=== PATIENT | female | born 1985 | race Caucasian/White ===

== ENCOUNTER → 2017-12-10 10:37 | Outpatient (CLI) | payer MEDICAID, SELFPAY ==
--- NOTE | 2017-12-10 10:42 | US_ITS ---
US transvaginal HISTORY: Right-sided pelvic pain ITS.REASON: PELVIC PAIN ORDERING PHYSICIAN: Nikko Jiang MD PATIENT AGE: 32 years COMPARISON: None FINDINGS: There has been prior hysterectomy. Free fluid is present in the pelvis. The left ovary is 3.5 x 2 cm and contains small follicles. Blood flow is present. The right ovary is 4.7 x 2.9 cm containing small follicles and a 2.5 x 2 cm cyst. Blood flow is present. Moderate amount fluid is present in cul-de-sac. IMPRESSION: Prior hysterectomy. Prominent right ovary with 2.5 cm cyst. Moderate amount fluid in the pelvis
== END ==
PROVIDERS: Family Provider Emergency Medicine; PCP Emergency Medicine; Visit Provider Obstetrics & Gynecology
DX: R10.2 Pelvic and perineal pain (principal)
CPT/HCPCS: 76830

== ENCOUNTER → 2017-12-17 12:03 | Outpatient (CLI) | payer MEDICAID, SELFPAY | PROVIDERS: PCP Emergency Medicine; Visit Provider Emergency Medicine | DX: R10.2 Pelvic and perineal pain (principal) ==

== ENCOUNTER → 2017-12-19 12:48 | Outpatient (CLI) | payer MEDICAID, SELFPAY ==
[2017-12-19 12:52] LABS: Microscopic, Urine URINE MICROSCOPIC (MICROSCOPIC)
[2017-12-19 13:19] LABS: Basophils # 0.1 K/mm3 (0-0.2); Basophils % 0.9 % (0.1-2.0); Eosinophils # 0.1 K/mm3 (0.0-0.4); Eosinophils % 1.5 % (0.1-12.0); Hematocrit 41.5 % (37.0-47.0); Hemoglobin 13.5 g/dL (12.2-16.2); Lymphocytes # 2.6 K/mm3 (0.7-4.5); Mean Corpuscular HGB Conc 32.4 g/dL (31.8-35.4); Mean Corpuscular Hemoglobin 29.1 pg (27.0-31.2); Mean Corpuscular Volume 89.9 fl (81-99); Mean Platelet Volume 8.2 fl (7.4-10.4); Monocytes # 0.7 K/mm3 (0.1-1.0); Monocytes % 8.8 % (1.7-9.3); Neutrophils # 4.1 K/mm3 (1.8-7.8); Neutrophils % 53.9 % (37.0-80.0); Platelet Count 238 K/mm3 (142-424); Red Blood Count 4.62 M/mm3 (4.20-5.40); Red Cell Distribution Width 12.7 % (11.5-17.5); White Blood Count 7.6 K/mm3 (4.8-10.8)
[2017-12-19 13:21] LABS: Appearance,Urine CLEAR (Clear); Bilirubin,Urine Negative (Negative); Blood, Urine Negative (Negative); Color,Urine YELLOW (Yellow); Glucose,Urine (UA) Negative (Negative); Ketones,Urine Negative (Negative); Leukocyte Esterase,Urine Negative (Negative); Nitrate,Urine Negative (Negative); Protein,Urine Negative (Negative); Specific Gravity, Urine 1.025 (1.005-1.030)
[2017-12-19 13:38] LABS: Bacteria,Urine 2+ /lpf; Mucus,Urine 2+ /lpf; WBC,Urine Occasional #/hpf (0-3)
[2017-12-19 15:54] LABS: Alanine Aminotransferase 18 U/L (12-78); Albumin Level 3.8 gm/dL (3.4-5.0); Albumin/Globulin Ratio 1.2 (1.1-1.8); Alkaline Phosphatase 68 U/L (46-116); Anion Gap 10.2 mEq/L (5-15); Aspartate Amino Transferase 11 U/L (15-37); Bilirubin,Total 0.2 mg/dL (0.2-1.0); Blood Urea Nitrogen 12 mg/dL (7-18); Calcium 8.7 mg/dL (8.5-10.1); Carbon Dioxide 31 mmol/L (21.0-32.0); Chloride 107 mmol/L (98-107); Creatinine,Serum 0.63 mg/dL (0.55-1.02); Estimated Glomerular Filt Rate 108 ml/min (>60); GFR (African American) 131 ML/MIN (>60); Globulin 3.1 gm/dl (1.3-3.2); Glucose 80 mg/dL (74-106); Potassium 4.2 mmoL/L (3.5-5.1); Sodium 144 mmol/L (136-145); Total Protein,Serum 6.9 gm/dL (6.4-8.2)
[2017-12-20 19:10] LABS: Cancer Antigen (CA) 125 8.9 U/mL (0.0-38.1)
== END ==
PROVIDERS: PCP Emergency Medicine; Visit Provider Obstetrics & Gynecology
DX: R10.2 Pelvic and perineal pain (principal); Z01.812 Encounter for preprocedural laboratory examination
CPT/HCPCS: 36415; 80053; 81001; 85025; 86316; 87086

== ENCOUNTER 2017-12-23 06:11 | Day surgery (SDC) | payer MEDICAID, SELFPAY ==
[2017-12-19 13:14] VITALS: BMI 20.5
[2017-12-23] VITALS (10 sets, daily range): BP systolic 100–131; BP diastolic 68–83; PULSE 70–88; RESP 14–18; TEMP 36.4–43; O2SAT 98–100
--- NOTE | 2017-12-23 06:49 | HMH.ANESCL ---
[facility] Anesthesia Checklist - Patient Identification Patient Identification: Arm Band, Verbal (Name & ) - Structural Data Admitted From: Home Planned Operative Procedure/s: dx lap Consent for Planned Operative Procedure(s) Verified: Yes Verified Documents: Surgical Consent - NPO Status Verified Time NPO: 00:00 - Chart Verification Results Verified: CBC, BMP - Additional verifications Patient : No Anesthesia Reactions: No Hx Blood Transfusions: No Blood Transfusion Reaction: No Cephalosporin Allergy: No Previous Colonoscopy: No - Cardiovascular Assessment Heart Sounds: S1 & S2 Pulse Strength: Baseline Pulse Rhythm: Regular Peripheral Edema: No - Airway Assessment C-Spine Mobility Assessed: Yes TMJ Mobility Assessed: Yes Dentition: Edentulous - Neurological Assessment Level of Consciousness: Awake, Alert, Appropriate Hx Seizures: No Numbness or tingling in extremities: No - Anesthesia Plan Anesthesia Risk discussed: Yes ASA Class: II Anesthesia Type: General [facility] Anesthesia HX I have reviewed the patient's past medical history: Yes Medical History: Reports:: Asthma Denies:: Cancer, Diabetes Mellitus Type 1, Diabetes Mellitus Type 2, MRSA Other Surgeries: Yes: Hysterectomy-Total, Tubal Ligation, Other Amputation: No Fractures: Yes (right jaw) *Family Hx:: Stroke, Cancer
--- NOTE | 2017-12-23 06:53 | P.PN_ITS ---
[facility] Anesthesia Checklist - Patient Identification Patient Identification: Arm Band, Verbal (Name & ) - Structural Data Admitted From: Home Planned Operative Procedure/s: dx lap Consent for Planned Operative Procedure(s) Verified: Yes Verified Documents: Surgical Consent - NPO Status Verified Time NPO: 00:00 - Chart Verification Results Verified: CBC, BMP - Additional verifications Patient : No Anesthesia Reactions: No Hx Blood Transfusions: No Blood Transfusion Reaction: No Cephalosporin Allergy: No Previous Colonoscopy: No - Cardiovascular Assessment Heart Sounds: S1 & S2 Pulse Strength: Baseline Pulse Rhythm: Regular Peripheral Edema: No - Airway Assessment C-Spine Mobility Assessed: Yes TMJ Mobility Assessed: Yes Dentition: Edentulous - Neurological Assessment Level of Consciousness: Awake, Alert, Appropriate Hx Seizures: No Numbness or tingling in extremities: No - Anesthesia Plan Anesthesia Risk discussed: Yes ASA Class: II Anesthesia Type: General [facility] Anesthesia HX I have reviewed the patient's past medical history: Yes Medical History: Reports:: Asthma Denies:: Cancer, Diabetes Mellitus Type 1, Diabetes Mellitus Type 2, MRSA Other Surgeries: Yes: Hysterectomy-Total, Tubal Ligation, Other Amputation: No Fractures: Yes (right jaw) *Family Hx:: Stroke, Cancer
--- NOTE | 2017-12-23 08:30 | P.PN_ITS ---
[facility] Anesthesia Record Part II Discharge Time: 09:00 Destination: [facility] PACU nurse assessment reviewed?: Yes Patient Condition:: Good Anesthesia Complications:: None
--- NOTE | 2017-12-23 08:30 | P.PN_ITS ---
[facility] Anesthesia Record Part I Intake, IV Amount: 1,500 Estimated blood loss (mL): 0 Urine output (mL): 0 Blood Pressure: 131/80 SaO2: 98 Pulse Rate: 81 Respiratory Rate: 14 Temperature: 99.1 F Patient is:: Drowsy, Stable Stable to PACU at:: 08:30
--- NOTE | 2017-12-23 08:30 | HMH.ANESII ---
[facility] Anesthesia Record Part II Discharge Time: 09:00 Destination: [facility] PACU nurse assessment reviewed?: Yes Patient Condition:: Good Anesthesia Complications:: None
--- NOTE | 2017-12-23 08:33 | HMH.OPNOTE ---
Date of procedure: 12/23/17 Pre-op Diagnosis:: 1. Pelvic pain. 2. Left ovarian cyst. Post-op diagnosis:: other (1. Pelvic pain.2. Leaking left ovarian cyst.3. Extensive pelvic adhesions.) Procedure performed:: Pelviscopic bilateral salpingo-oophorectomy and extensive lysis of adhesions. Surgeon:: Nikko Jiang MD TRACK REPAIR PERSON:: Sonu Cochran Anesthesia: GETA Estimated blood loss (mL): 10 Operative findings:: 1. Extensive pelvic adhesions. 2. Leaking left ovarian cyst. Operative note:: After the patient was prepped and draped in usual fashion and general anesthesia was administered, examination under anesthesia revealed an absent uterus, and no palpable adnexal masses. A moist sponge stick was placed in the vagina for elevation of the vaginal cuff during the laparoscopy. After appropriate regloving, the skin on either side of the umbilicus was tented up with towel clips. A small incision was made in the base the umbilicus with a knife, and a Veress needle was inserted into the abdominal cavity. After a demonstration of negative pressure, and adequate phisoperitoneum was created with carbon dioxide gas. Veress needle was then replaced with a trocar and cannula, using the [employer] system, and the trocar placed with the laparoscope. The uterus was surgically absent. There were extensive pelvic adhesions, from omentum to the vaginal cuff, and burying both adnexa. The right adnexa, in particular, was multicystic. There was a moderate amount of serosanguineous fluid in the cul-de-sac, and this was suctioned. The upper abdomen was explored him to be normal. The appendix not able to be visualized. Returning to the pelvis, after transillumination and under direct visualization, accessory ports were placed in the right and left lower quadrants. Using a combination of endo-Babcocks and EndoShears, the adhesions were taken down hemostatically. The infundibulopelvic ligaments on either side were crossclamped and stapled, thus removing both adnexa. An Endo Catch basket was placed through the left lower quadrant port, and first the right adnexa, and then the left were brought out through that port. There was no undue bleeding. The pelvis was inspected and found to be clean. The fascial peritoneum was reduced, and the instruments were removed under direct visualization. The skin incisions were infused with a dilute solution of Marcaine, as a local anesthetic, and closed with subcuticular sutures of 3-0 Vicryl. The wounds were appropriately dressed. The sponge stick was removed from the vagina. The estimated blood loss was less than 10 cc. The patient tolerated the procedure well, was taken to PACU in excellent condition. She will be discharged today, if her vital signs are stable. She will receive Delestrogen 30 mg IM in PACU. Pathology: other Condition: stable Disposition: same day Specimens:: Both adnexa Complications:: None
--- NOTE | 2017-12-23 08:40 | P.OP_ITS ---
Date of procedure: 12/23/17 Pre-op Diagnosis:: 1. Pelvic pain. 2. Left ovarian cyst. Post-op diagnosis:: other (1. Pelvic pain.2. Leaking left ovarian cyst.3. Extensive pelvic adhesions.) Procedure performed:: Pelviscopic bilateral salpingo-oophorectomy and extensive lysis of adhesions. Surgeon:: Nikko Jiang MD MARKET RELATIONSHIP MANAGER:: Sonu Cochran Anesthesia: GETA Estimated blood loss (mL): 10 Operative findings:: 1. Extensive pelvic adhesions. 2. Leaking left ovarian cyst. Operative note:: After the patient was prepped and draped in usual fashion and general anesthesia was administered, examination under anesthesia revealed an absent uterus, and no palpable adnexal masses. A moist sponge stick was placed in the vagina for elevation of the vaginal cuff during the laparoscopy. After appropriate regloving, the skin on either side of the umbilicus was tented up with towel clips. A small incision was made in the base the umbilicus with a knife, and a Veress needle was inserted into the abdominal cavity. After a demonstration of negative pressure, and adequate phisoperitoneum was created with carbon dioxide gas. Veress needle was then replaced with a trocar and cannula, using the [employer] system, and the trocar placed with the laparoscope. The uterus was surgically absent. There were extensive pelvic adhesions, from omentum to the vaginal cuff, and burying both adnexa. The right adnexa, in particular, was multicystic. There was a moderate amount of serosanguineous fluid in the cul-de-sac, and this was suctioned. The upper abdomen was explored him to be normal. The appendix not able to be visualized. Returning to the pelvis, after transillumination and under direct visualization, accessory ports were placed in the right and left lower quadrants. Using a combination of endo-Babcocks and EndoShears, the adhesions were taken down hemostatically. The infundibulopelvic ligaments on either side were crossclamped and stapled, thus removing both adnexa. An Endo Catch basket was placed through the left lower quadrant port, and first the right adnexa, and then the left were brought out through that port. There was no undue bleeding. The pelvis was inspected and found to be clean. The fascial peritoneum was reduced, and the instruments were removed under direct visualization. The skin incisions were infused with a dilute solution of Marcaine, as a local anesthetic , and closed with subcuticular sutures of 3-0 Vicryl. The wounds were appropriately dressed. The sponge stick was removed from the vagina. The estimated blood loss was less than 10 cc. The patient tolerated the procedure well, was taken to PACU in excellent condition. She will be discharged today, if her vital signs are stable. She will receive Delestrogen 30 mg IM in PACU. Pathology: other Condition: stable Disposition: same day Specimens:: Both adnexa Complications:: None
[2017-12-23 09:40] LABS: Hematocrit 37.4 % (37.0-47.0)
== END 2017-12-23 09:45 | disposition home or self-care (01) ==
LOC: OR 06:12
PROVIDERS: Family Provider Emergency Medicine; PCP Emergency Medicine; Visit Provider Obstetrics & Gynecology
PROC: (CPT 58661; principal; 2017-12-23 07:30)
DX: N83.202 Unspecified ovarian cyst, left side (principal); N73.6 Female pelvic peritoneal adhesions (postinfective)
CPT/HCPCS: 58661; 85014; 85018; 96372; 96374; J2405

== ENCOUNTER → 2018-08-21 16:11 | Outpatient (REF) | payer MEDICAID, SELFPAY ==
[2018-08-21 19:04] LABS: Amphetamine/Metha Screen,Urine Negative ng/mL (<1000); Barbiturates Screen,Urine Negative ng/mL (<200); Benzodiazepines Screen,Urine Negative ng/mL (<200); Cannabinoid Screen,Urine Negative ng/mL (<50); Cocaine Screen,Urine Negative ng/mL (<300); Methadone Screen,Urine Negative ng/mL (<300); Opiate Screen,Urine Negative ng/mL (<300); Phencyclidine Screen,Urine Negative ng/mL (<25)
[2018-09-01 09:20] LABS: Alprazolam Negative (Cutoff=100); Benzodiazepines Positive ng/mL (Cutoff=100); Clonazepam Positive (.); Flurazepam Negative (Cutoff=100); Lorazepam Negative (Cutoff=100); Midazolam Negative (Cutoff=100); Temazepam Negative (Cutoff=100); Triazolam Negative (Cutoff=100)
[2018-09-01 15:52] LABS: Clonazepam Confirm 275 ng/mL (Cutoff=100)
== END ==
LOC: LAB 16:11
PROVIDERS: Visit Provider Nurse Practitioner Family
DX: Z79.899 Other long term (current) drug therapy (principal)
CPT/HCPCS: 80305; 80346

== ENCOUNTER → 2019-04-07 13:32 | Outpatient (CLI) | payer MEDICAID, SELFPAY ==
[2019-04-08 08:55] LABS: Hep A Ab, IgM Negative (Negative); Hepatitis B Core Antibody IgM Negative (Negative); Hepatitis B Surface Antigen Negative (Negative)
[2019-04-08 09:33] LABS: HIV Screen 4th Generation wRfx Non Reactive (Non Reactive); Hepatitis C Antibody <0.1 s/co ratio (0.0-0.9)
== END ==
PROVIDERS: Visit Provider Emergency Medicine
DX: Z20.5 Contact with and (suspected) exposure to viral hepatitis (principal)
CPT/HCPCS: 80074; 86703; G0432

== ENCOUNTER → 2019-05-31 13:12 | Outpatient (CLI) | payer MEDICAID, SELFPAY ==
[2019-05-31 13:38] LABS: Basophils % 0.6 % (0.1-2.0); Eosinophils # 0.2 K/mm3 (0.0-0.4); Eosinophils % 3.3 % (0.1-12.0); Hematocrit 40.7 % (37.0-47.0); Lymphocytes # 2.4 K/mm3 (0.7-4.5); Lymphocytes % 33.4 % (10-50); Mean Corpuscular Volume 84.4 fl (81-99); Mean Platelet Volume 7.9 fl (7.4-10.4); Monocytes # 0.5 K/mm3 (0.1-1.0); Monocytes % 7.1 % (1.7-9.3); Neutrophils % 55.5 % (37.0-80.0); Platelet Count 250 K/mm3 (142-424); Red Blood Count 4.82 M/mm3 (4.20-5.40); Red Cell Distribution Width 13.1 % (11.5-17.5); White Blood Count 7.2 K/mm3 (4.8-10.8)
[2019-05-31 14:26] LABS: Anion Gap 11.3 mEq/L (5-15); Blood Urea Nitrogen 11 mg/dL (7-18); Calcium 9.2 mg/dL (8.5-10.1); Carbon Dioxide 30 mmol/L (21.0-32.0); Chloride 104 mmol/L (98-107); Creatinine,Serum 0.71 mg/dL (0.55-1.02); Estimated Glomerular Filt Rate 93 ml/min (>60); GFR (African American) 113 ML/MIN (>60); Glucose 80 mg/dL (74-106); Potassium 4.3 mmoL/L (3.5-5.1); Sodium 141 mmol/L (136-145)
== END ==
PROVIDERS: Visit Provider Otolaryngology
DX: Z01.818 Encounter for other preprocedural examination (principal); R59.0 Localized enlarged lymph nodes; T16.2XXA Foreign body in left ear, initial encounter; H60.92 Unspecified otitis externa, left ear
CPT/HCPCS: 36415; 80048; 85025; 86618; 93005

== ENCOUNTER 2020-10-03 17:19 | Emergency (ER) | payer MEDICAID, SELFPAY ==
[2020-10-03 17:37] VITALS: BP 107/58; PULSE 65; RESP 19; TEMP 36.6; O2SAT 98; BMI 23.0
[2020-10-03 17:59] VITALS: BP 107/58; PULSE 65; RESP 19; TEMP 36.6; O2SAT 98
--- NOTE | 2020-10-03 18:00 | HMH.EDUTC ---
[facility] [place] Clinical Impression: Encounter to obtain excuse from work Disposition: Home, Self-Care Condition on Discharge: Good Instructions: Nausea and Vomiting-Adult Additional Instructions: ? Avoid fruit juices, as these do not replace minerals and can actually increase diarrhea. ? Children and adults can use sports drinks to replenish electrolytes. Younger children and infants should use products formulated for children, like oral rehydration solutions. ? Eat food in small amounts and let your stomach recover. ? Get lots of rest. You may feel tired or weak. ? No greasy or fried foods for the next 24-48 hours BRAT diet Bananas Rice Apples and Strawn ? Make sure to drink plenty of liquids ? Return if needed ? Straight to ER if any life threatening symptoms ? Follow up with family doctor in the next 48-72 hours if no improvement or any worsening of symptoms Referrals: Shaun Shultz MD [Primary Care Provider] - As needed Forms: Work/School Release Time of Disposition: 18:01 Medical Decision Making - Rachid Inquiry Pt receiving controlled substance: No Rachid was queried for this patient: No Vital Signs: 10/03/20 17:37 Temperature 97.9 F Temperature Source Oral Pulse Rate [Right Brachial] 65 Respiratory Rate 19 Blood Pressure [Right Arm] 107/58 L Blood Pressure Mean [Right Arm] 74 Blood Pressure Source [Right Arm] Automatic Cuff Blood Pressure Position [Right Arm] Sitting 02 Sat by Pulse Oximetry 98 Oxygen Delivery Method Room Air [facility] [place] - General Stated complaint: needs work excuse for upset stomach Time Seen by Provider: 10/03/20 18:00 Mode of Arrival: Ambulatory Source of Information: Patient Limitations: No Limitations Description of Symptoms (Recalled from Triage Doc. by RN): PATIENT REQUESTING WORK NOTE HEENT Symptoms (Recalled from RN notes): No Resp Symptoms (Recalled from RN notes): No Skin Symptoms (Recalled from RN notes): No MS Symptoms (Recalled from RN notes): No Functional Status (Recalled from RN notes): WNL - History of Present Illness Provider Complaint: Patient state that yesterday she thinks she had a stomach bug State that she woke up and had some nausea and a couple eppisodes of vomiting but none since and no longer feeling sick at her stomach Denies known exposure to COVID - Related Data Previous Rx's Medication Instructions Recorded Azithromycin [Z-Trevor 250mg Tab*] 250 mg PO UD DOSE PK #6 tab 01/11/20 Benzonatate [Tessalon Perle 100mg 100 mg PO TID PRN #15 cap 01/11/20 Cap*] methylPREDNISolone [Medrol 4mg 4 mg PO DIRECTED #21 tab 01/11/20 tab] Allergies Allergy/AdvReac Type Severity Reaction Status Date / Time codeine Allergy Unknown Rash Verified 12/03/19 13:28 - Worker's Comp Is this a Worker's Comp case?: No [facility] History - Hepatitis A Screen Drug use history?: No High risk sexual behaviors?: No History of sexually transmitted infection?: No Currently employed?: No Childcare worker?: No Do you have indoor plumbing?: Yes Do you have electricity?: Yes Attestation statement:: This patient has been screened for Hepatitis A risk factors. I have reviewed the patient's past medical history: Yes Medical History: Reports:: Anxiety, Asthma Denies:: Cancer, Diabetes Mellitus Type 1, Diabetes Mellitus Type 2, MRSA, Seizures Other Medical History: Denies: Blood Transfusion Reaction Other Surgeries: Yes: Hysterectomy-Total, Tubal Ligation, Other Amputation: No Fractures: Yes (right jaw) Comment: 2009- Dental surgery. 2011- PPBTL. 2016- [facility], No BSO. 2018- PVS BSO, extensive lysis of adhesions - Social History Smoking Status: Current every day smoker Tobacco Type: cigarettes # Packs/Day (cigarettes): 1 #Yrs smoked (if former smoker): 20 Alcohol Intake: never Alcohol Intake Frequency:: holidays/special occasions only Substance Use Type: marijuana Occupational Status: other Housing: house Household Members: spouse, children - Psychiatr
== END 2020-10-03 18:00 | disposition home or self-care (01) ==
PROVIDERS: Emergency Provider Nurse Practitioner; PCP Emergency Medicine
DX: Z02.89 Encounter for other administrative examinations (principal); F41.9 Anxiety disorder, unspecified; J45.909 Unspecified asthma, uncomplicated; F17.210 Nicotine dependence, cigarettes, uncomplicated; Z90.710 Acquired absence of both cervix and uterus; Z88.5 Allergy status to narcotic agent
CPT/HCPCS: 99201

== ENCOUNTER 2022-10-06 11:49 | Emergency (ER) | payer MEDICAID, SELFPAY ==
[2022-10-06 14:10] VITALS: BP 107/69; PULSE 101; RESP 20; TEMP 37.2; O2SAT 100; BMI 26.9
[2022-10-06 14:27] LABS: UTC Influenza A Antigen Negative (Negative)
[2022-10-06 14:28] LABS: UTC Influenza B Antigen Negative (Negative)
--- NOTE | 2022-10-06 14:31 | EXP.UTC ---
Discharge Plan Disposition Patient Disposition: Home, Self-Care Condition: Good Prescriptions Prescriptions: New ffkyuaryelkvafo-emsjpjwft-JX [Bromfed DM] 2-30-10 mg/5 mL Syrup 10 ml PO Q4H PRN (Reason: Cough) Qty: 200 0RF Referrals Follow up/Referrals: Shaun Shultz MD [Primary Care Provider] - See instructions Activity Restrictions/Add. Instructions Additional Instructions/Restrictions: *Monitor Temp, Over the counter Motrin or Tylenol as directed/as needed Tylenol every 4 hours and Motrin every 6 hours (as long as your family doctor has told you that you can take it) for fever or pain. and straight to ER if unable to lower temp less than 101.0 after medication given *Warm salt water gargles may help to soothe the throat *Throat Lozenges? *Warm fluids like tea with honey may help to soothe the throat? *Sleep elevated *Humidifier/Vaporizer *Bromfed may cause drowsiness. Know how it effects you (your child) before driving, caring for small child, or sending your child to school. Not other antihistamines/allergy medications while taking bromfed Follow up IMMEDIATELY for new or worsening symptoms or no Noticeable improvement over the next 48-72 hours. 911 for difficulty breathing or swallowing You were tested for today for ?Upper Respiratory Panel with COVID19 your test result should be back in the next 24-48 hours, you may check your results on the [facility] [employer] [facility] Portal Clinical Impressions Clinical Impression: Viral upper respiratory tract infection with cough Stand Alone Forms Stand Alone Forms: Work/School Release Instructions Patient Instructions: Cough, DI for Fever (Symptom) -- Adult Discharge ED Provider: Jaida Gaines [facility] [place] General Stated complaint: BA, GUALLPA, Chest congestion Mode of Arrival: Ambulatory Source of Information: Patient Limitations: No Limitations Time Seen by Provider: 10/06/22 14:31 Description of Symptoms (Recalled from Triage Doc. by RN): PATIENT C/O COUGH, BODY ACHES, HEADACHE, AND WEAKNESS X 3 DAYS HEENT Symptoms (Recalled from RN notes): Yes Resp Symptoms (Recalled from RN notes): Yes Skin Symptoms (Recalled from RN notes): No MS Symptoms (Recalled from RN notes): No Functional Status (Recalled from RN notes): WNL History of Present Illness Provider Complaint: Patient states that she hasnt felt well for about 3 days States that she has been having body aches, chills, headache and cough States that she feels like she may have the flu but did work with someone that had RSV Related Data Previous Rx's Medication Instructions Recorded tqyjkediahvlfyw-ypskzwwoaaviosu-PW 10 ml PO Q4H PRN Cough #200 mL 10/06/22 2 mg-30 mg-10 mg/5 mL oral syrup (Bromfed DM) Allergies Allergy/AdvReac Type Severity Reaction Status Date / Time codeine Allergy Unknown Rash Verified 12/03/19 13:28 Worker's Comp Is this a Worker's Comp case?: No [facility] Medical History (Updated 10/06/22 @ 14:35 by Jaida Gaines APRN) Asthma Surgical History (Updated 10/06/22 @ 14:25 by Gayla Hu RN) History of hysterectomy Social History (Updated 10/06/22 @ 14:25 by Gayla Hu RN) Smoking Status: Current every day smoker tobacco type: cigarettes packs per day: 1 second hand exposure: Yes alcohol intake: never substance use type: marijuana current occupational status: other Travel in the last 8 weeks: None household members: spouse and children housing: house current occupation: unemployed current occupational exposures/hazards: No ROS Obtained: Yes All systems reviewed & no additional complaints except as documented and Yes Systems reviewed as appropriate & no additional complaints except as documented Constitutional Constitutional: Reports system reviewed and no additional complaints, except as documented, Reports as per HPI, Reports body ache, Reports chills, Reports fatigue, Reports fever(s) and Reports headache(s) ENT
[2022-10-06 14:37] VITALS: BP 107/69; PULSE 101; RESP 20; TEMP 37.2; O2SAT 100
[2022-10-06 14:50] LABS: Adenovirus,PCR Not Detected (NotDetected); Bordetella Pertussis Not Detected (NotDetected); Chlamydophila Pneumoniae, PCR Not Detected (NotDetected); Coronavirus 19, PCR Not Detected (NotDetected); Coronavirus 229E Not Detected (NotDetected); Coronavirus NL63 Not Detected (NotDetected); Coronavirus OC43 Not Detected (NotDetected); Coronovirus HKU1,PCR Not Detected (NotDetected); Human Metapneumovirus Not Detected (NotDetected); Influenza A, PCR Not Detected (NotDetected); Influenza AH1, 2009 Not Detected (NotDetected); Influenza AH1, PCR Not Detected (NotDetected); Influenza B, PCR Not Detected (NotDetected); Mycoplasma Pneumoniae, PCR Not Detected (NotDetected); Parainfluenza 1, PCR Not Detected (NotDetected); Parainfluenza 2, PCR Not Detected (NotDetected); Parainfluenza 3, PCR Not Detected (NotDetected); Parainfluenza 4, PCR Not Detected (NotDetected); Respiratory Syncytial Virus Not Detected (NotDetected); Rhinovirus/Enterovirus Not Detected (NotDetected)
[2022-10-06 20:08] LABS: Influenza AH3,PCR Detected (NotDetected)
== END 2022-10-06 14:40 | disposition home or self-care (01) ==
PROVIDERS: Emergency Provider Nurse Practitioner; PCP Emergency Medicine
DX: J10.1 Influenza due to other identified influenza virus with other respiratory manifestations (principal); R50.9 Fever, unspecified; R53.1 Weakness; M79.10 Myalgia, unspecified site; Z20.822 Contact with and (suspected) exposure to COVID-19; R09.81 Nasal congestion; R05.9 Cough, unspecified; R53.82 Chronic fatigue, unspecified; J45.909 Unspecified asthma, uncomplicated; F17.210 Nicotine dependence, cigarettes, uncomplicated; Z88.5 Allergy status to narcotic agent
CPT/HCPCS: 87581; 87632; 87798; 87804; 99213; C9803; G0463; U0003; U0005